=== PATIENT | female | born 1995 | race Caucasian/White ===

== ENCOUNTER 2020-08-28 12:12 | Outpatient (CLI) | payer MEDICAID ==
[~2020-08-28] VITALS: Ht 147.3 cm; Wt 75.0 kg
[2020-08-28 12:51] VITALS: BP 110/61
[2020-08-28 13:02] LABS: MICROSCOPIC INDICATED
[2020-08-28 13:13] LABS: CREATININE,URINE RANDOM 33.3 mg/dL
[2020-08-28 13:16] LABS: BASOPHILS % (AUTO) 1 % (0-1); EOSINOPHILS % (AUTO) 0 % (1-7); LYMPHOCYTES % (AUTO) 13 % (22-44); MEAN CORPUSCULAR HEMOGLOBIN 29.2 pg (27.0-34.8); MEAN CORPUSCULAR HGB CONC 34.2 g/dL (32.4-35.8); MEAN PLATELET VOLUME 7.1 fL (7.4-10.4); MONOCYTES % (AUTO) 5 % (2-9); NEUTROPHILS % (AUTO) 82 % (42-75); PLATELET COUNT 276 x10^3/uL (130-400); RED BLOOD COUNT 4.01 x10^6/uL (3.82-5.3); RED CELL DISTRIBUTION WIDTH 13.6 % (9.6-15.2)
[2020-08-28 13:21] LABS: MD NO
[2020-08-28 13:25] LABS: ALANINE AMINOTRANSFERASE 19 U/L (12-78); ALBUMIN 2.7 g/dL (3.4-5.0); ANION GAP 7 mmol/L (5-15); BILIRUBIN, DIRECT 0.2 mg/dL (0.1-0.2); CALCIUM 8.6 mg/dL (8.5-10.1); CHLORIDE 107 mmol/L (98-107); CREATININE 0.52 mg/dL (0.55-1.02)
[2020-08-28 13:28] LABS: ALKALINE PHOSPHATASE 127 U/L (45-117); BILIRUBIN,TOTAL 0.5 mg/dL (0.2-1.0); TOTAL PROTEIN 6.6 g/dL (6.4-8.2)
[2020-08-28] MEDS ORDERED: PREN1TAB60 PO (15:08)
== END 2020-08-28 15:20 | disposition home or self-care (01) ==
LOC: LDOP 12:12
PROVIDERS: ATTEND Obstetrics & Gynecology
DX: O13.3 Gestational [pregnancy-induced] hypertension without significant proteinuria, third trimester (principal); Z3A.35 35 weeks gestation of pregnancy
CPT/HCPCS: 36415; 59025; 76819; 80053; 81001; 82248; 82570; 84156; 84550; 85025

== ENCOUNTER 2020-09-03 11:42 | Outpatient (CLI) | payer MEDICAID ==
[~2020-09-03] VITALS: Ht 147.3 cm; Wt 74.0 kg
[~2020-09-03 11:42] MED LIST: PREN1TAB60 PO
== END 2020-09-03 13:32 | disposition home or self-care (01) ==
LOC: LDOP 11:42
PROVIDERS: ATTEND Obstetrics & Gynecology
DX: Z34.93 Encounter for supervision of normal pregnancy, unspecified, third trimester (principal); Z3A.36 36 weeks gestation of pregnancy
CPT/HCPCS: 59025; 76819

== ENCOUNTER 2020-09-10 17:44 | Inpatient (IN) | payer MEDICAID ==
[~2020-09-10] VITALS: Ht 147.3 cm; Wt 75.0 kg
[2020-09-10] MEDS ORDERED: OXYTOCIN 30U/ 0.9% NaCL 500ML 500 ML IV ONE (18:00)
[2020-09-10] MEDS ORDERED: METOCLOPRAMIDE 5 MG/ML, 2ML IVPush PRN (18:00)
[2020-09-10] MEDS ORDERED: SODIUM CHLORIDE FLUSH 10ML SYR IVF PRN (18:00)
[2020-09-10] MEDS ORDERED: SODIUM CITRATE/CITRIC ACID 30 ML UDC PO PRN (18:00)
[2020-09-10] MEDS ORDERED: ONDANSETRON 2MG/ML, 2ML IVPush PRN (18:00)
[2020-09-10] MEDS ORDERED: FENTANYL PF 100 MCG/2ML IVPush PRN (18:00)
[2020-09-10] MEDS ORDERED: TERBUTALINE 1 MG/ML, 1ML SQ PRN (18:00)
[2020-09-10] MEDS ORDERED: TERBUTALINE 1 MG/ML, 1ML IVPush PRN (18:00)
[2020-09-10] MEDS ORDERED: NEWBORN KIT ONE (18:14)
[2020-09-10 18:19] VITALS: BP 128/74
[2020-09-10] MEDS: LACTATED RINGERS 1,000 ML IV SCH (18:29)
[2020-09-10] MEDS ORDERED: D5%-LACTATED RINGERS 1,000 ML IV SCH (18:30)
[2020-09-10] MEDS ORDERED: OXYTOCIN 30U/ 0.9% NaCL 500ML 500 ML IV PRN (18:30)
[2020-09-10 18:35] LABS: BASOPHILS % (AUTO) 1 % (0-1); EOSINOPHILS % (AUTO) 1 % (1-7); LYMPHOCYTES % (AUTO) 14 % (22-44); MD NO; MEAN CORPUSCULAR HEMOGLOBIN 28.9 pg (27.0-34.8); MEAN CORPUSCULAR HGB CONC 33.5 g/dL (32.4-35.8); MEAN PLATELET VOLUME 7.3 fL (7.4-10.4); MONOCYTES % (AUTO) 7 % (2-9); NEUTROPHILS % (AUTO) 78 % (42-75); PLATELET COUNT 339 x10^3/uL (130-400); RED BLOOD COUNT 4.23 x10^6/uL (3.82-5.3); RED CELL DISTRIBUTION WIDTH 14.1 % (9.6-15.2)
[2020-09-10 18:43] LABS: ALANINE AMINOTRANSFERASE 20 U/L (12-78); ALBUMIN 2.8 g/dL (3.4-5.0); ANION GAP 7 mmol/L (5-15); CALCIUM 9.2 mg/dL (8.5-10.1); CHLORIDE 106 mmol/L (98-107)
[2020-09-10 18:46] LABS: ALKALINE PHOSPHATASE 140 U/L (45-117); BILIRUBIN,TOTAL 0.3 mg/dL (0.2-1.0); TOTAL PROTEIN 6.8 g/dL (6.4-8.2)
[2020-09-10 18:47] LABS: CREATININE,URINE RANDOM 63.7 mg/dL
[2020-09-10 18:53] LABS: MICROSCOPIC INDICATED
[2020-09-11] MEDS: LACTATED RINGERS 1,000 ML IV SCH (00:55)
[2020-09-11] MEDS: FENTANYL PF 100 MCG/2ML IV PRN ×2 (04:20→04:34)
[2020-09-11] MEDS ORDERED: DEXTROSE 47%, 15GM GEL ONE (06:31)
[2020-09-11] MEDS ORDERED: HYDROcodone/APAP 5/325 TABLET PO PRN (07:00)
[2020-09-11] MEDS: OXYTOCIN 30U/ 0.9% NaCL 500ML 500 ML IV SCH ×2 (07:00→17:00)
[2020-09-11] MEDS ORDERED: METHYLERGONOVINE 0.2 MG/ML IM PRN (07:00)
[2020-09-11] MEDS ORDERED: SIMETHICONE 80 MG CHEW TAB PO PRN (07:00)
[2020-09-11] MEDS ORDERED: CARBOPROST TROMETHAMINE 250 MCG/ML, 1ML IM PRN (07:00)
[2020-09-11] MEDS ORDERED: ACETAMINOPHEN 325 MG TABLET PO PRN (07:00)
[2020-09-11] MEDS ORDERED: MISOPROSTOL 200 MCG TABLET PR PRN (07:00)
[2020-09-11] MEDS ORDERED: ONDANSETRON 2MG/ML, 2ML IV PRN (07:00)
[2020-09-11 07:36] VITALS: BP 119/83
[2020-09-11] MEDS ORDERED: IBUPROFEN 600 MG TABLET ONE (07:40)
[2020-09-11] MEDS: IBUPROFEN 600 MG TABLET PO PRN ×3 (07:42→21:40)
[2020-09-11] MEDS: HYDROcodone/APAP 5/325 TABLET PO PRN (08:26)
[2020-09-11 09:00] VITALS: BP 119/83
[2020-09-11] MEDS: PRENATAL VIT/IRON/FA 1 EACH TABLET PO SCH (09:00)
[2020-09-11 12:40] VITALS: BP 90/54
[2020-09-11 14:08] LABS: BASOPHILS % (AUTO) 1 % (0-1); EOSINOPHILS % (AUTO) 0 % (1-7); LYMPHOCYTES % (AUTO) 12 % (22-44); MEAN CORPUSCULAR HEMOGLOBIN 28.8 pg (27.0-34.8); MEAN CORPUSCULAR HGB CONC 33.7 g/dL (32.4-35.8); MEAN PLATELET VOLUME 7.2 fL (7.4-10.4); MONOCYTES % (AUTO) 6 % (2-9); NEUTROPHILS % (AUTO) 82 % (42-75); PLATELET COUNT 296 x10^3/uL (130-400); RED BLOOD COUNT 4.24 x10^6/uL (3.82-5.3)
[2020-09-11 14:10] LABS: MD NO
[2020-09-11 19:30] VITALS: BP 110/77
[2020-09-11] MEDS: DOCUSATE 100 MG CAPSULE PO PRN (21:39)
[2020-09-12] VITALS: BP 107/71
[2020-09-12] MEDS: OXYTOCIN 30U/ 0.9% NaCL 500ML 500 ML IV SCH (03:00)
[2020-09-12 04:00] VITALS: BP 108/74
[2020-09-12] MEDS: IBUPROFEN 600 MG TABLET PO PRN (04:17)
[2020-09-12] MEDS ORDERED: IBUP-1222 PO (05:12)
[2020-09-12] MEDS ORDERED: SENN-52 PO (05:12)
[2020-09-12 07:40] VITALS: BP 113/78
[2020-09-12] MEDS: HYDROcodone/APAP 5/325 TABLET PO PRN (07:43)
[2020-09-12] MEDS: PRENATAL VIT/IRON/FA 1 EACH TABLET PO SCH (07:44)
[2020-09-12] MEDS: DOCUSATE 100 MG CAPSULE PO PRN (07:45)
[2020-09-12 11:30] VITALS: BP 125/84
[2020-09-12] MEDS ORDERED: HYDR-2214 PO (12:44)
== END 2020-09-12 13:35 | disposition home or self-care (01) | DRG 807 ==
LOC: LDIP 17:44 → 2NW 09-11 07:35
PROVIDERS: ADMIT Obstetrics & Gynecology; ATTEND Obstetrics & Gynecology
PROC: 10E0XZZ Delivery of Products of Conception, External Approach (ICD-10-PCS; principal; 2020-09-10)
DX: O13.4 Gestational [pregnancy-induced] hypertension without significant proteinuria, complicating childbirth (principal); Z37.0 Single live birth; Z3A.37 37 weeks gestation of pregnancy; Z20.822 Contact with and (suspected) exposure to COVID-19
CPT/HCPCS: 36415; 80053; 81001; 82570; 84156; 84550; 85025; 86592; 86850; 86900; 87635; G0378; J3010; J7120